=== PATIENT | male | born 1985 | race Caucasian/White ===

== ENCOUNTER 2021-05-17 14:03 | Emergency (ER) | payer OTHER, SELFPAY ==
--- NOTE | ~2021-05-17 | CT_ITS ---
EXAMINATION: CT HEAD W/O IV CONTRAST CT CERVICAL SPINE W/O IV CONTRAST CLINICAL INFORMATION: History of head injury, loss of consciousness, pain. COMPARISON: None TECHNIQUE: Head - Contiguous axial imaging of the head was performed from the skull base to the vertex without the administration of intravenous contrast, and axial images are reconstructed at 2 mm and 5 mm slice thickness. Cervical spine - A volumetric, helical CT acquisition of the cervical spine was obtained without contrast; in addition to the standard set of axial images, multiplanar reformatted images were provided in the coronal and sagittal imaging planes. This CT examination was performed using dose optimization techniques as appropriate, variously including the following: *Automated exposure control *Adjustment of mA and/or kV according to patient size (this includes techniques or standardized protocols for targeted exams where dose is matched to indication/reason for exam; i.e. extremities or head) *Use of iterative reconstruction technique DLP: 1104 mGy-cm (total) FINDINGS: HEAD: No evidence of intracranial hemorrhage, major vascular territory infarction, focal mass effect or midline shift. Arceo to white matter differentiation is preserved. The ventricles have normal size and configuration. No extra-axial fluid collections. Brainstem and cerebellum are intact. Incidentally noted is the cerebellar tonsils projecting a few millimeters (3-4 mm) below the level of the foramen magnum (i.e., borderline Chiari 1 configuration). The calvarium is intact and the visualized paranasal sinuses, mastoid air cells and middle ear cavities are clear. The temporomandibular joints are unremarkable. The visualized orbits and globes are intact. CERVICAL SPINE: No acute abnormalities. The craniocervical junction is normal. The occipital condyles, dens and atlantodental articulation are intact. The vertebral body heights and alignment are maintained. No fractures in the anterior or posterior elements. No prevertebral soft tissue swelling. Small anterior vertebral osteophytes are noted at C5-C6. Mild disc space narrowing, vertebral endplate osteophytes and uncovertebral joint hypertrophy at C6-C7. No significant narrowing of the spinal canal or neural foramina at this level. The facet joints are unremarkable. No spinal hematoma or focal fluid collection in the visualized neck. The examined lung apices are clear. Thyroid gland is normal. CT/CT cervical spine wo con IMPRESSION: * No hemorrhage or other acute intracranial pathology. * No fracture or malalignment in the cervical spine.
[2021-05-17 17:05] VITALS: BP 130/68; PULSE 70; RESP 16; TEMP 36.4; O2SAT 100; BMI 25.7
[2021-05-17 18:11] VITALS: BP 104/71; PULSE 60; RESP 16; TEMP 36.6; O2SAT 100
--- NOTE | 2021-05-17 18:33 | ED.HEATRA ---
HPI - Head Injury General Chief complaint: Head Injury Stated complaint: head injury Time Seen by Provider: 05/17/21 17:08 Source: patient Mode of arrival: ambulatory Limitations: no limitations History of Present Illness HPI Narrative: Otherwise healthy 35-year-old male presenting ambulatory via triage with his significant other with complaint of head injury. States he was playing softball and he had a head-on collision with a teammate were he hit his head on the teammates shoulder going for the ball. States he did fall and have a loss of consciousness for about 5 minutes. Did have some nausea and dizziness afterwards. States he developed some light sensitivity afterwards as well. And having some bilateral neck pain. He otherwise denies any other injury or complaint of any pain. No recent illness. No fever. MD Complaint: head injury Onset (ago): hour(s) Mechanism of Injury: sports related injury Place: outdoors Loss of Consciousness: yes Location of injury: frontal Severity: moderate Radiation: none Other Injuries: none Associated symptoms: nausea and other (Photosensitivity) Related Data Allergies Allergy/AdvReac Type Severity Reaction Status Date / Time Penicillins [PENICILLINS] Allergy Intermediate RASH Unverified 06/26/20 15:37 From KEFLEX Allergy Unknown RASH Uncoded 06/26/20 15:37 Review of Systems Review of Systems: Constitutional: No Weight loss, No Fever, No Chills, No Night Sweats, No Fatigue, No Malaise ENT/Mouth: No Hearing loss, No Ear Pain, No Nasal Congestion, No Sinus Pain, No Hoarseness, No sore throat, No Rhinorrhea, No Swallowing Difficulty Eyes: No Eye Pain, No Swelling, No Redness, No Foreign Body, No Discharge, No Vision Changes Cardiovascular: No Chest Pain, No SOB, No Dyspnea on Exertion, No Orthopnea, No Edema, No Palpitations Respiratory: No Cough, No Sputum, No Wheezing, No Smoke Exposure, No Dyspnea Gastrointestinal: No Nausea, No Vomiting, No Diarrhea, No Constipation, No abdominal Pain, No Hematochezia, No Melena Genitourinary: no irregular bleeding, No Dysuria, No Urinary Frequency, No Hematuria, No Urinary Incontinence, No Urgency, No Flank Pain, No Urinary Flow Changes, No Hesitancy Musculoskeletal: No joint pain, No Myalgias, No Joint Swelling, + Neck pain Skin: No Skin Lesions, No rash Neuro: No Weakness, No Numbness, No Paresthesias, + Loss of Consciousness, No Dizziness, + Headache Psych: No Anxiety/Panic, No Depression, No SI/HI/AH/VH, No Social Issues Heme/Lymph: No Bruising, No Bleeding,No Lymphadenopathy Endocrine: No Polyuria, No Polydipsia, No Temperature Intolerance [facility] Past Medical History Medical History (Updated 05/17/21 @ 18:35 by Tutu Kaba NP) No known health problems Social History Social History Advance Directives: No Advance Directives Information Provided: No Physical Exam Vital Signs: Vital Signs: Last Vital Signs Temp 98 F 05/17/21 18:11 Pulse 60 05/17/21 18:11 Resp 16 05/17/21 18:11 BP 104/71 05/17/21 18:11 Pulse Ox 100 05/17/21 18:11 Body Mass Index 25.7 Const: General: cooperative and healthy appearing; No acute distress or intoxicated appearing Nutritional Appearance: average body habitus Orientation/consciousness: patient oriented x3 HENMT: Head: Yes normal to inspection Ears: hearing grossly normal bilaterally Eyes: General: appearance normal, both eyes and all related structures Visual Henderson: normal visual henderson by confrontation Neck: Neck: Yes normal visual inspection, No positive Brudzinski's sign, No positive Kernig's sign and No tender Thyroid: Thyroid normal Chest: Chest palpation & inspection: normal inspection of the chest Resp: Effort & Inspection: normal respiratory effort Auscultation: clear to auscultation bilaterally Cardio: Jugular venous distension: no JVD Palpation: normal PMI Rate: regular rate Rhythm: regular rhythm Heart sounds: S1 normal heart sound present and S2 normal heart sound present GI: Inspection: Yes normal to inspection Percussion: Yes normal to percussion Auscultation: normal bowel sounds : General: Yes no CVA tenderness Back/Spine/Pelvis: Back: no CVA tenderness Skin: General skin exam: no rashes or lesions noted Neuro: General: patient oriented x3 Extrem: Other: Pain to the mid bilateral aspect of the posterior neck paraspinous muscle region. No midline to palpation, no step-off General: Yes normal to inspection MDM - Head Injury MDM Narrative Medical decision making narrative: Head/neck CT unremarkable. AP consistent with head injury with LOC/concussion. Will discharge home with concussion symptoms/precautions return follow-up instruction tolerating p.o. intake well. Nontoxic appearing. Ambulatory status of gait. Stable for discharge. Differential Diagnosis Differential diagnosis: Likely concussion without loss of consciousness, closed head injury, postconcussion syndrome, subdural hematoma and concussion with loss of consciousness; Unlikely subarachnoid hematoma Medical Records Attestation: I reviewed the patient's medical records. Lab Data Attestation: I reviewed the patient's lab results. Imaging Data Head/cervical spine CT: Radiologist's impression: [address] [address] [address] Scan Report Signed Patient: Torrey Alegria JR MR#: [id number] : 1985 Acct:[id number] Age/Sex: 35 / M ADM Date: 05/17/21 Loc: HO.ED Attending Dr: Ordering Physician: Tutu Kaba NP Date of Service: 05/17/21 Procedure(s): CT cervical spine wo con Accession Number(s): [id number] cc: Tutu Kaba NP~ EXAMINATION: CT HEAD W/O IV CONTRAST CT CERVICAL SPINE W/O IV CONTRAST CLINICAL INFORMATION: History of head injury, loss of consciousness, pain. COMPARISON: None TECHNIQUE: Head - Contiguous axial imaging of the head was performed from the skull base to the vertex without the administration of intravenous contrast, and axial images are reconstructed at 2 mm and 5 mm slice thickness. Cervical spine - A volumetric, helical CT acquisition of the cervical spine was obtained without contrast; in addition to the standard set of axial images, multiplanar reformatted images were provided in the coronal and sagittal imaging planes. This CT examination was performed using dose optimization techniques as appropriate, variously including the following: *Automated exposure control *Adjustment of mA and/or kV according to patient size (this includes techniques or standardized protocols for targeted exams where dose is matched to indication/reason for exam; i.e. extremities or head) *Use of iterative reconstruction technique DLP: 1104 mGy-cm (total) FINDINGS: HEAD: No evidence of intracranial hemorrhage, major vascular territory infarction, focal mass effect or midline shift. Arceo to white matter differentiation is preserved. The ventricles have normal size and configuration. No extra-axial fluid collections. Brainstem and cerebellum are intact. Incidentally noted is the cerebellar tonsils projecting a few millimeters (3-4 mm) below the level of the foramen magnum (i.e., borderline Chiari 1 configuration).? The calvarium is intact and the visualized paranasal sinuses, mastoid air cells and middle ear cavities are clear. The temporomandibular joints are unremarkable. The visualized orbits and globes are intact. CERVICAL SPINE: No acute abnormalities. The craniocervical junction is normal. The occipital condyles, dens and atlantodental articulation are intact. The vertebral body heights and alignment are maintained.? No fractures in the anterior or posterior elements. No prevertebral soft tissue swelling. Small anterior vertebral osteophytes are noted at C5-C6. Mild disc space narrowing, vertebral endplate osteophytes and uncovertebral joint hypertrophy at C6-C7. No significant narrowing of the spinal canal or neural foramina at this level.? The facet joints are unremarkable. No spinal hematoma or focal fluid collection in the visualized neck. The examined lung apices are clear. Thyroid gland is normal.? CT/CT cervical spine wo con IMPRESSION: *? No hemorrhage or other acute intracranial pathology. *? No fracture or malalignment in the cervical spine. ? ? Dictated By: MARCOS LOWE MD Signed By: <Electronically signed by MARCOS LOWE MD in OV> 05/17/21 1810 DD/ 1708 TD/TT:? Energy Systems Engineer: PD Discharge Plan Discharge Clinical Impression: Closed head injury, Concussion with loss of consciousness Patient Disposition: Home, Self-Care Instructions: Head Injury (ED), Sports Concussion (ED) Additional Instructions: Home care instructions reviewed Supportive cares discussed Return if any concerns worsening symptoms Follow up as instructed Thank you Referrals: Dmitry Walker MD [Primary Care Provider] - 2 days Stand Alone Forms: Work/School Release
== END 2021-05-17 18:47 | disposition home or self-care (01) ==
PROVIDERS: Emergency Provider Internal Medicine; PCP Internal Medicine
DX: S06.0X1A Concussion with loss of consciousness of 30 minutes or less, initial encounter (principal); S09.90XA Unspecified injury of head, initial encounter; W51.XXXA Accidental striking against or bumped into by another person, initial encounter; Y93.64 Activity, baseball; Y92.320 Baseball field as the place of occurrence of the external cause; Y99.9 Unspecified external cause status
CPT/HCPCS: 70450; 72125; 99283; 99284